=== PATIENT | female | born 1985 | race Asian ===

== ENCOUNTER 2020-10-11 12:49 | Emergency (ER) | payer OTHER ==
[2020-10-11 13:38] LABS: BASOPHIL 0.8 % (0-2); EOSINOPHIL 2.1 % (0-5); HCT 38.7 % (37.0-47.0); HGB 13.7 g/dl (12.5-16.0); MCH 32.6 pg (25.0-31.0); MCHC 35.4 g/dL (32.0-36.0); MCV 92.1 fL (78.0-100.0); MONOCYTE 4.9 % (0-12); MPV 10.8 fL (6.0-9.5); NEUTROPHIL 55.2 % (41-80); NRBC 0; PLT 203 K/uL (150-400); RDW 12.2 % (11.5-14.0); WBC 3.9 K/uL (4.0-10.5)
[2020-10-11 14:07] LABS: ALBUMIN 4.4 g/dL (3.4-5.0); BILIRUBIN - TOTAL 0.6 mg/dL (0.2-1.0); BUN/CREAT RATIO (CALC) 16.1 RATIO; CREATININE 0.56 mg/dL (0.51-0.95); FT4 (FREE T4) 1.1 ng/dL (0.76-1.46); GLOBULIN (CALCULATION) 4.2 g/dL; POTASSIUM 3.2 mmol/L (3.5-5.1); TOTAL PROTEIN 8.6 g/dL (6.4-8.2)
[2020-10-11 14:33] LABS: BILIRUBIN NEGATIVE (NEGATIVE); BLOOD NEGATIVE Ery/uL (NEGATIVE); CLARITY CLEAR (CLEAR); COLOR YELLOW (YELLOW); GLUCOSE (U) NORMAL (NORMAL); LEUKOCYTES NEGATIVE Leu/uL (NEGATIVE); NITRITE NEGATIVE (NEGATIVE); PROTEIN NEGATIVE (NEGATIVE); UROBILINOGEN 0.2 mg/dL (0.2-1.0)
[2020-10-11] MEDS ORDERED: LEVOTHYROXINE100 MC2 PO (14:51)
== END 2020-10-11 15:18 | disposition home or self-care (01) ==
LOC: FER 12:49
PROVIDERS: Nurse Practitioner Family
DX: R42 Dizziness and giddiness (principal); E03.9 Hypothyroidism, unspecified; Z76.0 Encounter for issue of repeat prescription; Z79.899 Other long term (current) drug therapy; Z87.891 Personal history of nicotine dependence
CPT/HCPCS: 36415; 80053; 81003; 84439; 84443; 85025; 99284